=== PATIENT | female | born 1990 | race Caucasian/White ===

== ENCOUNTER → 2018-05-06 | Outpatient (CLI) | payer OTHER ==
[~2018-05-06] MED LIST: ACET325 PO; CLARITIN10 MG PO; Evening Primro500 MG PO; IBUP800 PO; Ventolin Soln3 ML INH; Verotin-Gr Cap1 EACH PO
[2018-05-06 11:32] LABS: Source, Urine Clean Catch
[2018-05-06 12:48] LABS: Bilirubin, Urine Neg (Neg); Blood, Urine 2+ (Neg); Glucose Qualitative, Urine Neg (Neg); Ketones, Urine 1+ (Neg); Leukocyte Esterase, Urine 3+ (Neg); Nitrite, Urine Neg (Neg); Protein, Urine 2+ (Neg); Urobilinogen, Urine 1+ (Normal)
[2018-05-06 12:58] LABS: Appearance, Urine Hazy (Clear); Bacteria Rare /hpf; Color, Urine Yellow (P-Yellow); Squamous Epithelial Cells Few /hpf (Few); White Blood Cells, Urine TNTC /hpf (0-5)
== END | disposition home or self-care (01) ==
LOC: LAB SHORT 10:46 → LAB 10:46
PROVIDERS: Family Medicine
DX: R30.0 Dysuria (principal)
CPT/HCPCS: 81001; 87086